=== PATIENT | male | born 1985 | race Two or more races ===

== ENCOUNTER 2018-11-03 15:40 | Emergency (ER) | payer SELFPAY ==
[2018-11-03] MEDS ORDERED: KETOROLAC TROMETHAMINE INJ/PF 30 MG/1 ML SDV IM ONE (15:58)
[2018-11-03] MEDS ORDERED: DIPH/PERTUSS(ACELL)/TETANUS VAC/PF 0.5 ML SYR (>=10YO) IM ONE (15:58)
--- NOTE | 2018-11-03 16:04 | ER Document Report ---
HPI - HPI Time Seen by Provider: 11/03/18 15:53 Pain Level: 5 Notes: Patient is a 33-year-old male no significant past medical history who presents to the ED complaining of a dog bite to his left lower extremity prior to arrival. Patient states that he was bit by a pit bull that he knows and is not sure if it was truly provoked or not. Patient states that they did not call animal control as he does not want anything to happen to the dog. He is unaware of the vaccination status of the dog and states that his tetanus is not up-to-date. Patient states that he may have twisted his ankle in the process, and that the area of concern of the dog bite is his anterior foot/ankle. He is still able to ambulate without any difficulties. Denies drug allergies or IV drug abuse. No other concerns or complaints. Denies any headache, fever, neck pain, URI, sore throat, chest pain, palpitations, syncope, cough, shortness of breath, wheeze, dyspnea, abdominal pain, nausea/vomiting/diarrhea, urinary retention, dysuria, hematuria, loss of control of bowel or bladder, numbness/ tingling, saddle anesthesia, muscle paralysis/weakness, or rash. - ROS Systems Reviewed and Negative: Yes All other systems reviewed and negative - REPRODUCTIVE Reproductive: DENIES: : Past Medical History - Social History Smoking Status: Unknown if Ever Smoked Family History: Reviewed & Not Pertinent - Immunizations Hx Diphtheria, Pertussis, Tetanus Vaccination: Yes Vertical Provider Document - CONSTITUTIONAL Agree With Documented VS: Yes Notes: PHYSICAL EXAMINATION: GENERAL: Well-appearing, well-nourished and in no acute distress. LUNGS: Breath sounds clear to auscultation bilaterally and equal. No wheezes rales or rhonchi. HEART: Regular rate and rhythm without murmurs, rubs, gallops. Musculoskeletal: Lt foot/ankle: FROM to passive/active. Strength 5+/5. N/V intact distal. + mild tenderness to the posterior malleoli b/l. No bony tenderness of the foot. Achilles intact. + superficial laceration (1.2cm) noted to the anterior mid ankle/prox foot w/o active bleeding. No obvious foreign body. Extremities: No cyanosis, clubbing, or edema b/l. Peripheral pulses 2+. Capillary refill less than 3 seconds. NEUROLOGICAL: Normal speech, normal gait. Normal sensory, motor exams PSYCH: Normal mood, normal affect. SKIN: see above. There are also superficial abrasions to the left lower leg and left thigh w/o any ecchymosis or significant skin trauma noted. - INFECTION CONTROL TRAVEL OUTSIDE OF THE [place] IN LAST 30 DAYS: No Course - Re-evaluation Re-evalutation: 11/03/18 16:38 Patient is an afebrile, well-hydrated, 33-year-old male who presents to the ED with a dog bite to the left lower extremity. Vitals are acceptable without significant tachycardia, tachypnea, or hypoxia. PE is otherwise unremarkable for any neurovascular compromise, obvious tendon/leg rupture, obvious fracture/ dislocation, septic joint, DVT, retained foreign body. Wounds were thoroughly irrigated and cleansed. Wound dressing was placed and Steri-Strips were applied allowing adequate drainage of the lacerated skin. X-ray was unremarkable for any acute pathology. Patient was given Toradol IM as well as a tetanus update. No labs or further imaging warranted. I did thoroughly review the risk and benefits of the rabies vaccination series with the patient. Patient states that he does not want animal control called and they will monitor the dog over the next 10 days. Patient has declined rabies vaccination series and has verbally given understanding of this decision. Patient is nontoxic-appearing and is tolerating p.o. without difficulty. We will send him home with a prescription for Augmentin as well as naproxen. Conservative measures otherwise for symptoms. Wound instructions reviewed. Recheck with your PCM in 3-5 days. Return to the ED with any worsening/concerning symptoms otherwise as reviewed and discharge. Patient is in agreement. - Vital Signs Vital signs: Temp Pulse Resp BP Pulse Ox 98.5 F 90 14 152/125 H 98 11/03/18 15:42 11/03/18 15:42 11/03/18 15:42 11/03/18 15:42 11/03/18 15:42 Discharge - Discharge Clinical Impression: Dog bite Qualifiers: Encounter type: initial encounter Qualified Code(s): W54.0XXA - Bitten by dog, initial encounter Condition: Stable Disposition: HOME, SELF-CARE Instructions: Animal Bites ([facility]) Additional Instructions: Keep the skin clean Wash with soap and water Avoid submersion under any water until the wound is healed Daily dressing changes with triple antibiotic ointment Tylenol/ibuprofen if needed Take antibiotic medication as directed Monitor for any worsening symptoms Recheck with your PCM in 3-5 days Return to the ED with any worsening symptoms and/or development of fever, headache, chest pain, palpitations, syncope, shortness of breath, trouble breathing, abdominal pain, n/v/d, abscess, purulent discharge, red streaks, worsening swelling, or other worsening symptoms that are concerning to you. Prescriptions: Amox Tr/Potassium Clavulanate [Augmentin 875-125 Tablet] 1 tab PO BID 10 Days # 20 tablet Naproxen 500 mg PO BID #20 tablet Forms: Elevated Blood Pressure Referrals: [facility] [Provider Group] - Follow up as needed [facility] [Provider Group] - Follow up as needed
--- NOTE | 2018-11-03 16:35 | RADIOLOGY REPORT (SQ) ---
EXAM DESCRIPTION: ANKLE LEFT COMPLETE COMPLETED DATE/TIME: 11/03/2018 4:12 pm REASON FOR STUDY: dog bite, ankle pain COMPARISON: None. NUMBER OF VIEWS: Three views. TECHNIQUE: AP, lateral, and oblique radiographic images acquired of the left ankle. LIMITATIONS: None. FINDINGS: MINERALIZATION: Normal. BONES: No acute fracture or dislocation. No worrisome bone lesions. JOINTS: No effusions. SOFT TISSUES: Small soft tissue air bubbles are seen along the anterior soft tissues at the ankle, ex tending into the anterolateral soft tissues near the lateral malleolar tip. No puncture bone wound i s identified. No retained radiopaque foreign body OTHER: No other significant finding. IMPRESSION: Soft tissue gas along the anterolateral aspect of the left ankle joint without puncture wound into bone from dog bite. No intra-articular air is identified TECHNICAL DOCUMENTATION: JOB ID: [id number] [employer]- All Rights Reserved Reading location - IP/workstation name: [email or web address]
[2018-11-03 16:43] VITALS: BP 117/70
== END 2018-11-03 16:44 | disposition home or self-care (01) ==
LOC: ER 15:40
DX: S81.852A Open bite, left lower leg, initial encounter (principal); W54.0XXA Bitten by dog, initial encounter; Z23 Encounter for immunization
CPT/HCPCS: 99283; 96372; 90471; 73610; 90715; J1885

== ENCOUNTER 2018-12-11 19:43 | Emergency (ER) | payer SELFPAY ==
[2018-12-11 19:55] VITALS: BP 108/78
--- NOTE | 2018-12-11 20:30 | RADIOLOGY REPORT (SQ) ---
EXAM DESCRIPTION: XR KNEE 4 OR MORE VIEWS COMPLETED DATE/TME: 12/11/2018 00:00 CLINICAL HISTORY: 33 years, Male, [place] a pop in knee now has pain COMPARISON: None. NUMBER OF VIEWS: 4 TECHNIQUE: 4 view left knee LIMITATIONS: None. FINDINGS: Negative for acute fracture or dislocation. Soft tissues are unremarkable IMPRESSION: Negative exam copyright 2010 [employer]- All Rights Reserved
[2018-12-11] MEDS ORDERED: HYDROCODONE/ACETAMINOPHEN 5-325 MG TABLET PO ONE (22:44)
--- NOTE | 2018-12-11 22:45 | ER Document Report ---
HPI - HPI Patient complains to provider of: L knee injury Time Seen by Provider: 12/11/18 22:17 Pain Level: 4 Context: Well-appearing 33-year-old male in mild distress presents to the emergency department for a left knee injury. He states he was playing with his kids 3 days ago and heard a pop when lifting a child performing a twisting motion. He tried to take Tylenol every 4 hours but the pain became unbearable and he sought care in the emergency department this evening. No fevers, chills, nausea, vomiting. Patient is unable to bear weight on it. Patient is unable to complete full knee extension without being in excruciating pain. - CONSTITUTIONAL Constitutional: DENIES: Fever, Chills - EENT EENT: DENIES: Sore Throat, Ear Pain, Eye problems - NEURO Neurology: DENIES: Headache, Weakness, Vision blurred, Dizzinesss / Vertigo - CARDIOVASCULAR Cardiovascular: DENIES: Chest pain - RESPIRATORY Respiratory: DENIES: Trouble Breathing, Coughing - GASTROINTESTINAL Gastrointestinal: DENIES: Abdominal Pain, Black / Bloody Stools - URINARY Urinary: DENIES: Dysuria, Urgency, Frequency - REPRODUCTIVE Reproductive: DENIES: : - MUSCULOSKELETAL Musculoskeletal: REPORTS: Extremity pain - L knee Past Medical History - Social History Smoking Status: Unknown if Ever Smoked Family History: Reviewed & Not Pertinent Patient has suicidal ideation: No Patient has homicidal ideation: No Renal/ Medical History: Denies: Hx Peritoneal Dialysis - Immunizations Hx Diphtheria, Pertussis, Tetanus Vaccination: Yes Vertical Provider Document - CONSTITUTIONAL Agree With Documented VS: Yes Notes: PHYSICAL EXAMINATION: Reviewed vital signs and charting by RN GENERAL: Alert, interacts well. Mild distress. HEAD: Normocephalic, atraumatic. EYES: Pupils equal, round Extraocular movements intact. ENT: Oral mucosa moist NECK: Trachea midline. EXTREMITIES: Limited range of motion right knee making exam difficult. Acute tenderness to palpation along the medial and lateral joint lines of the femur and the tib-fib. Acute tenderness to palpation over the patellofemoral ligament. Mild edema. No erythema. NEUROLOGICAL: Alert and oriented x3. Normal speech. PSYCH: Normal affect, normal mood. SKIN: Warm, dry, normal turgor. No rashes or lesions noted. - INFECTION CONTROL TRAVEL OUTSIDE OF THE [place] IN LAST 30 DAYS: No Course - Re-evaluation Re-evalutation: 12/11/18 22:48 33 male in mild distress sitting in the wheelchair unable to bear weight on his knee. X-rays were negative for fracture dislocation. Patient states he heard a pop when performing a twisting motion and lifting his child. This most consistent with a ligamentous injury like an ACL injury or another ligament in his knee. I have referred him to orthopedics for follow-up in the morning. Normal distal neurovascular exam. Left leg is warm and pink. At this time I do not suspect a compromise of the popliteal artery as the patient is here 3 days later. - Vital Signs Vital signs: Temp Pulse Resp BP Pulse Ox 98.3 F 111 H 16 108/78 98 12/11/18 19:53 12/11/18 19:53 12/11/18 19:53 12/11/18 19:53 12/11/18 19:53 Discharge - Discharge Clinical Impression: Knee injury Qualifiers: Encounter type: initial encounter Laterality: left Qualified Code(s): S89.92XA - Unspecified injury of left lower leg, initial encounter Condition: Stable Disposition: HOME, SELF-CARE Instructions: Use of Crutches ([facility]), Ice & Elevation ([facility]), Suspected Internal Knee Injury ([facility]) Additional Instructions: You are seen in the emergency department this evening for a knee injury. X-ray showed no evidence of dislocation or any fractures. Please call Dr. Singh's office in the morning and schedule a follow-up appointment so he can better assess the soft tissues as you most likely have sustained a ligamentous injury or some type of soft tissue injury. At this time, we have provided you with immobilization and pain control. If your leg turns blue, you lose feeling in your foot or your calf, the joint gets red and swollen and you get a fever, please immediately return to the emergency department. Forms: Return to Work Referrals: SHA STEVENSON MD [ACTIVE STAFF] - Follow up as needed
[2018-12-11] MEDS ORDERED: HYDROCODONE/ACETAMINOPHEN 5-325 MG (6 TAB/ER DISP) PO PRN (22:49)
== END 2018-12-11 23:09 | disposition home or self-care (01) ==
LOC: ER 19:43
DX: S89.92XA Unspecified injury of left lower leg, initial encounter (principal); X58.XXXA Exposure to other specified factors, initial encounter
CPT/HCPCS: 99283